=== PATIENT | female | born 1955 | race Two or more races ===

== ENCOUNTER 2022-04-22 17:53 | Emergency (ER) | payer OTHER ==
[~2022-04-22] VITALS: Ht 149.9 cm; Wt 50.8 kg
[2022-04-22] MEDS ORDERED: COZAAR100 MG (18:39)
[2022-04-22] MEDS ORDERED: TRULICITY0.75 MG/0. (18:40)
[2022-04-22] MEDS ORDERED: ATORVASTATIN CA10 MG (18:40)
[2022-04-22] MEDS ORDERED: METFORMIN HCL500 M3 PO (18:40)
[2022-04-22] MEDS ORDERED: CHILDREN'S ASPI81 MG (18:42)
[2022-04-22] MEDS ORDERED: GLIMEPIRIDE1 MG (18:42)
[2022-04-22] MEDS ORDERED: LAMICTAL25 MG (18:42)
[2022-04-22] MEDS ORDERED: GABAPENTIN100 MG (18:42)
[2022-04-22] MEDS ORDERED: TRAZODONE HCL50 MG (18:43)
== END 2022-04-22 20:02 | disposition home or self-care (01) ==
LOC: ER 17:53
DX: L02.415 Cutaneous abscess of right lower limb (principal); I10 Essential (primary) hypertension; E11.9 Type 2 diabetes mellitus without complications; Z79.84 Long term (current) use of oral hypoglycemic drugs

== ENCOUNTER 2022-04-24 11:52 | Emergency (ER) | payer OTHER ==
[~2022-04-24] VITALS: Ht 149.9 cm; Wt 50.8 kg
[~2022-04-24 11:52] MED LIST: ATORVASTATIN CA10 MG; CHILDREN'S ASPI81 MG; COZAAR100 MG; GABAPENTIN100 MG; GLIMEPIRIDE1 MG; LAMICTAL25 MG; METFORMIN HCL500 M3 PO; TRAZODONE HCL50 MG; TRULICITY0.75 MG/0.
[2022-04-24] MEDS ORDERED: BACTRIM DS TAB1 EACH PO (12:37)
[2022-04-24] MEDS ORDERED: TRIPLE ANTIBIOT28 G1 TOP (12:38)
== END 2022-04-24 12:54 | disposition home or self-care (01) ==
LOC: ER 11:52
DX: L03.115 Cellulitis of right lower limb (principal); L02.415 Cutaneous abscess of right lower limb; E11.9 Type 2 diabetes mellitus without complications; Z79.84 Long term (current) use of oral hypoglycemic drugs; I10 Essential (primary) hypertension